=== PATIENT | male | born 1940 | race Caucasian/White ===

== ENCOUNTER 2024-05-25 06:03 | Day surgery (SDC) | payer MEDICARE, OTHER, SELFPAY ==
--- NOTE | 2024-05-18 10:37 | HP.FOC2 ---
Focused History & Physical
Chief Complaint
HPI:
FOR PROCEDURE WEDS 05/25/24
PCP: Rob Felder MD
CDY: Donn Gómez MD
Chief Complaint: MORAN/fatigue, severe
HPI: 83 y/o, PMH PAF on Eliquis, Aortic stenosis, CAD s/p CABG in 2008, s/p pacemaker for SSS, hyperlipidemia, obesity and diabetes. Presents now with worsening dyspnea on exertion, increased fatigue, sometimes associated with chest heaviness.
Echo 03/2024 with progressive severe , PG 85.5/MG 50.5, CHRISTIAN 0.44cm2. This is a significant increase from in MG from 34 over the last 6 months.
For [facility] today with TAVR evaluation.
Relevant Past Medical History: Coronary Artery Disease (CABG x2 (2008)), Diabetes, Hypertension and Other (Severe Aortic Stenosis, PFO w/atrial septal aneurysm, Atrial Flutter, SSS s/p PPM, hypothyroidism, HLD, )
Relevant Social History: Negative
Relevant Family History: Negative
Relevant Past Surgical History: Positive for (CABG x2 (ALEXIS-LAD, VG-LCx/PLB- 11/2008), DC PPM (01/2018))
Review of Systems
Review of Pertinent Systems: All Systems Negative Except for the Following Positives (progressive MORAN with increased fatigue, intermittent chest heaviness)
Medication
See Medication form for detailed medications: Yes
Medication List (including Herbals & OTC):
apixaban (Eliquis) 5 mg PO BID
cholecalciferol (vitamin D3) 50 mcg PO DAILY
docusate sodium (Colace) 200 mg PO BID PRN
empagliflozin (Jardiance) 10 mg PO DAILY
levothyroxine (Synthroid) 112 mcg PO DAILY
magnesium 250 mg PO DAILY
eluendjk-wka-RK-lycopen-lutein 0.4 mg-300 mcg- 250 mcg 1 tab PO DAILY
omega-3 fatty acids-fish oil 340-1,000 mg 1,000 mg PO DAILY
repaglinide 0.5 mg PO BID
simvastatin 40 mg PO HS
sotalol 120 mg PO BID
Medications Reviewed: Yes
Allergies and Reactions
Patient has Allergies: No
Noted Allergies and Reactions:
Allergy/AdvReac Type Severity Reaction Status Date / Time
No Known Allergies Allergy Unverified 11/14/08 11:03
Pertinent Physical Exam
All Other Systems: Negative
Head/Neck: Normal
Lungs: Normal
Heart: Other (S1 S2 3/6 holosystolic murmur across base)
Abdomen: Normal
Extremities: Other (trace bilat pedal edema)
Neurological: Normal
Diagnosis / Assessment
IMPRESSION:
Severe Aortic Stenosis
CAD, prior CABG x2 (2008)
SSS, s/p PPM implant (2017)
Atrial Flutter, on eliquis
PFO w/atrial septal aneurysm
HTN
HLD
DM
Hypothryoidism
Obesity
ECHO 04/05/24
SUMMARY
1. Left ventricular ejection fraction, by visual estimation, is 50 to 55%.
2. Preserved left ventricular systolic function.
3. Indeterminate LV diastolic function.
4. Normal left atrium by volume index (24.0 mL/m2) and normal right atrium by area (14.1 cm2).
5. Right atrial pressure of (3 mmHg), the estimated right ventricular systolic pressure is normal at (27.2 mmHg).
6. Normal right ventricular size and systolic function.
7. Severe aortic valve stenosis.
8. AoV velocity of 4.60 m/s; Peak aortic valve gradient = 84.5 mmHg; Mean gradient = 50.5 mmHg; AoV Area by continuity equation = 0.44 cm2; AoV Dimensionless Index = 0.17.
9. Mild mitral valve regurgitation is seen.
10. Compared to echo on 10/2023, aortic valve gradients have increased. Previously 62/34 mmHg.
11. Study done in Normal sinus rhythm.
Plan / Procedure
LHC today
Aspirin 324mg today
Resume eliquis post cath when stable
TAVR eval post cath
Anesthesia/Sedation to be done by Anesthesia Provider: No
[2024-05-25] VITALS (21 sets, daily range): BP systolic 124–148; BP diastolic 59–114; BMI 38.0
[2024-05-25] MEDS: NSS 340 ML IV (06:50)
[2024-05-25 07:02] LABS: Glucose - Point of Care 163 mg/dl (70-99)
[2024-05-25] MEDS: LOW STRENGTH ASPIRIN 324 MG PO (07:23)
--- NOTE | 2024-05-25 08:22 | ITS.CL.CATH ---
Light Armored Reconnaissance Officer - Catheterization
Cardiac Catheterization
Procedure Report:
LEFT HEART CATHETERIZATION
Date of Procedure: May 25, 2024
Procedures performed:
1: Coronary angiography
2: Left ventricular hemodynamic assessment
3: Saphenous vein with bypass graft and left internal mammary artery bypass graft angiography
Primary Care Physician: Dr. Rob Felder
Primary Nut Sorter Operator: Dr. Donn Gómez
INDICATION: The patient is an 83-year-old man with a past medical history significant for coronary artery disease status post CABG who is referred for increasing exertional dyspnea. Echocardiography has shown mean gradients as high as 51 mmHg on
April 05. LV systolic function is preserved at 50 to 55%. He also has a history of atrial fibrillation who is on Eliquis which was held for the procedure. Creatinine on preprocedure labs was 1.46.
ACCESS: The patient was prepped and draped in usual sterile fashion. A 6 [place] sheath was placed in the left radial artery using the Seldinger over the wire technique.
HEMODYNAMIC FINDINGS (mmHg):
LV(s/d,EDP): 0.188/16, 24
Ao(s/d,m): 140/76, 103
Mean gradient on pullback: 40 mmHg
ANGIOGRAPHIC FINDINGS:
Single-plane Left Ventriculography in LUCERO Projection: Not done
Coronary Angiography:
Dominance: Codominant
Left Main: Distal occlusion.
Left Anterior Descending: Flush occlusion. Fills via the widely patent ALEXIS graft.
Left Circumflex: Flush occlusion. Fills via the widely patent SVG.
Right Coronary: The right coronary artery is a relatively small but technically co-dominant artery that gives rise to a small caliber posterior descending artery which is widely patent.
Other angiography:
1: SVG to distal OM/left PLV: The graft is widely patent and inserts on the left-sided posterior left ventricular branch. There is retrograde filling of 2 major branches including a OM and a left-sided PDA. These vessels are widely patent. This
graft was poorly engaged from the left radial approach using a JR4 and a multipurpose diagnostic catheter.
Fluoroscopy Time (min): 7.7
Radiation Dose (mGy): 682
DAP (Gy.cm2): 50
Closure device: None. A TR band was applied for hemostasis at the left wrist.
Complications: None.
ASSESSMENT:
1: Widely patent ALEXIS and circumflex grafts to the occluded left main coronary distribution as described above.
2: Patent [place] right coronary artery.
3: Severe aortic valvular stenosis.
CONCLUSIONS and RECOMMENDATIONS:
1: Continue aggressive medical therapy for coronary artery disease.
2: Proceed with TAVR evaluation. The patient has very little social support with no local family and will need extra assistance with this process.
Luis Solano M.D.
Copy to: Dr. Rob Felder
--- NOTE | 2024-05-25 08:22 | CONSULT.STRU ---
Consultation
-
Date/Time Consultation Requested: 05/25/2024
Date/Time Consultation Performed: 05/25/2024
Requesting Provider: Luis Solano MD
Performing Provider: FRANCISCO Romeo
Reason for Consultation: /TAVR
Patient History
Physicians
Family Physician: Rob Felder MD
Outpatient Hydraulic Plumber: Mauricio Gómez MD
Primary Hydraulic Plumber: Mauricio Gómez MD
History of Present Illness
Mr. Reeves is a very pleasant 83 yom with a past medical history significant for CAD, CABG, T2DM, HTN, , Aflutter, hypercholesterolemia, and PFO. His most recent echocardiogram from 04/05/2024 is notable for EF50-55, AV P/M 85/51, DI 0.17, CHRISTIAN 0.44,
pk doug 4.6, mild MR, mild TR. From a symptomatology standpoint, patient describes MORAN progressively worse over the past six months, and positional dizziness. Discussed the pathophysiology and treatment options of aortic stenosis including SAVR and
TAVR. Explained the evaluation process comprising of lab work, staged CT scan d/t RI, CT surgical consult, dental clearance, and a heart team discussion. TAVR booklet, appointments, prescriptions, and contact information given to patient. Allowed
for answered questions at bedside.
Past Medical History
Past Medical History: Angina, CAD, HTN, Hypercholesterolemia, Hypothyroidism, NIDDM, Renal Insufficiency, Valvular Disease () and Other (Aflutter, PFO,sss)
Past Surgical History
Past Surgical History: CABG and Other (PPM)
Dental History
[facility]. Patient states he is UTD. Dental clearance form faxed
Family History
Mother: N/A
Father: N/A
Social History
Alcohol: Former
Drug: None
Tobacco: Non-Smoker
Personal:
Living: Alone
Employment: Retired
Allergies
Allergy/AdvReac Type Severity Reaction Status Date / Time
No Known Allergies Allergy Verified 05/25/24 06:32
Home Medications
�Medication �Instructions �Recorded �Confirmed �Type
simvastatin 40 mg tablet 40 mg PO HS 11/14/08 05/25/24 History
apixaban 5 mg tablet (Eliquis) 5 mg PO BID 05/25/24 05/25/24 History
cholecalciferol (vitamin D3) 50 50 mcg PO DAILY 05/25/24 05/25/24 History
mcg (2,000 unit) capsule (Vitamin
D3)
docusate sodium 100 mg capsule 100 mg PO DAILY 05/25/24 05/25/24 History
empagliflozin 10 mg tablet 10 mg PO DAILY 05/25/24 05/25/24 History
(Jardiance)
levothyroxine 112 mcg tablet 112 mcg PO DAILY 05/25/24 05/25/24 History
magnesium 250 mg tablet 250 mg PO DAILY 05/25/24 05/25/24 History
nyrechyn-wg-wbprb 300 mcg-K 60 1 tab PO DAILY 05/25/24 05/25/24 History
mcg-lycop 600 mcg-lutein 300 mcg
tablet (Centrum Silver Men)
omega-3 fatty acids 1,000 mg 1,000 mg PO DAILY 05/25/24 05/25/24 History
capsule
repaglinide 1 mg tablet 1 mg PO BID 05/25/24 05/25/24 History
sodium bicarbonate 650 mg tablet 650 mg PO BID 05/25/24 05/25/24 History
sotalol 120 mg tablet 120 mg PO BID 05/25/24 05/25/24 History
STS%
STS %: 7.29
Review of Systems
-
History Source: Patient
General: Reports Fatigue
HEENT: Reports No Symptoms
Respiratory: Reports MORAN
Cardiac: Reports No Symptoms
Abdomen/GI: Reports No Symptoms
: Reports No Symptoms
Musculoskeletal: Reports No Symptoms
Skin: Reports No Symptoms
Neurological: Reports No Symptoms
Vascular: Reports No Symptoms
Physical Exam
Vital Signs
Temp 97.6 F 05/25/24 06:20
Temp route: Oral 05/25/24 06:20
Pulse 69 05/25/24 06:20
Resp Rate 18 05/25/24 06:20
Blood pressure 124/78 05/25/24 06:20
Blood pressure extremity used: Right upper arm 05/25/24 06:20
Position: Lying 05/25/24 06:20
SaO2 99 05/25/24 06:20
Oxygen Mode of Delivery Room air 05/25/24 06:20
Can the patient verbally communicate their pain? Yes 05/25/24 06:20
Actual Weight 113.39 kg 05/25/24 06:32
Body Mass Index (BMI) 38.0 05/25/24 06:32
Labs
05/09/2024
HH: 14.3/42.9
BUN/Creatinine: 27/1.46
GFR 47
Diagnostic Studies
PACEMAKER REPORT
Implants:
Company: [employer] 8DR-T SN: [id number] Left Pectoral
RA: [employer] Solia S-45, SN: [id number], RAA
RV: [employer] Solia S-53, SN: [id number], RV apical septum
Device Testing:
Sensing: RA 6.5 (fib/flutter)mV, RV 11.1mV
Capture: RA (fib/flutter), RV 0.5V@0.4ms
Ohms: RA 487, RV 721
Final Programming:
Ethan Pacing DDD-CLS [ ]ppm
Complications: None.
Conclusions:
1. Successful implant of MRI compatible dual chamber permanent pacemaker.
ECHOCARDIOGRAM 04/05/2024
SUMMARY
1. Left ventricular ejection fraction, by visual estimation, is 50 to 55%.
2. Preserved left ventricular systolic function.
3. Indeterminate LV diastolic function.
4. Normal left atrium by volume index (24.0 mL/m2) and normal right atrium by area (14.1 cm2).
5. Right atrial pressure of (3 mmHg), the estimated right ventricular systolic pressure is normal at (27.2 mmHg).
6. Normal right ventricular size and systolic function.
7. Severe aortic valve stenosis.
8. AoV velocity of 4.60 m/s; Peak aortic valve gradient = 84.5 mmHg; Mean gradient = 50.5 mmHg; AoV Area by continuity equation = 0.44 cm2; AoV Dimensionless Index = 0.17.
9. Mild mitral valve regurgitation is seen.
10. Compared to echo on 10/2023, aortic valve gradients have increased. Previously 62/34 mmHg.
11. Study done in Normal sinus rhythm
CARDIAC CATHETERIZATION 05/25/2024
ASSESSMENT:
1: Widely patent ALEXIS and circumflex grafts to the occluded left main coronary distribution as described above.
2: Patent [place] right coronary artery.
3: Severe aortic valvular stenosis.
CONCLUSIONS and RECOMMENDATIONS:
1: Continue aggressive medical therapy for coronary artery disease.
2: Proceed with TAVR evaluation. The patient has very little social support with no local family and will need extra assistance with this process.
Procedure Type:�Isolated AVR
Perioperative Outcome Estimate %
Operative Mortality 7.29%
Morbidity & Mortality 14.9%
Stroke 2.09%
Renal Failure 3.87%
Reoperation 3.19%
Prolonged Ventilation 10.4%
Deep Sternal Wound Infection 0.192%
Long Hospital Stay (>14 days) 9.8%
Short Hospital Stay (<6 days)* 22.7%
Exam
General: No Apparent Distress, Comfortable and Other (obese)
HEENT: Normocephalic and EOMI
Neck: Trachea Midline
Respiratory: Clear
Cardiac: Murmur (IV/ TAMIKA)
GI: Soft, Non Tender and Non Distended
Rectal: Deferred by Provider
Skin: Warm and Dry
Neuro: Awake, Alert, Oriented and AO x 3
Psych: Calm
Assessment / Plan
-
Aortic stenosis
Continue with TAVR evalaution
Trend creatinine (Rx given)
Staged TAVR CT scan (Chest CT 06/08)
CT surgical consult (MPT 06/14)
Frailty testing and KCCQ12 at consult
Will discussed timing to hold Eliquis for TAVR, will initiate aspirin while Eliquis held
Will hold Jardiance for TAVR
Dental clearance
Heart team discussion
Data Reviewed
-
Media Sales Executive: Report Reviewed by me and Discussed with Physician
Echo: Report Reviewed by me and Discussed with Physician
Labs: Labs Reviewed by me
Old Records: Reviewed (Dr. Gómez's office note)
Total Time Spent with Patient (in minutes): 45
--- NOTE | 2024-05-25 08:30 | PTCARENOTE ---
Pt post cardiac catheterization. Per Dr Solano, pt did not receive sedation today so pt ok to drive himself home at 1400.
[2024-05-25] MEDS: NSS 1000 IV (08:36)
== END 2024-05-25 14:02 | disposition home or self-care (01) ==
LOC: CATH 06:03
PROVIDERS: ATTENDING PHYSICIAN Internal Medicine Interventional Cardiology; FAMILY PHYSICIAN Family Medicine; OTHER PHYSICIAN Internal Medicine Cardiovascular Disease
DX: I25.10 Atherosclerotic heart disease of native coronary artery without angina pectoris (principal); E11.9 Type 2 diabetes mellitus without complications; Z87.74 Personal history of (corrected) congenital malformations of heart and circulatory system; Z95.0 Presence of cardiac pacemaker; E78.00 Pure hypercholesterolemia, unspecified; E66.9 Obesity, unspecified; I48.0 Paroxysmal atrial fibrillation; Z79.01 Long term (current) use of anticoagulants; I49.5 Sick sinus syndrome; Z95.1 Presence of aortocoronary bypass graft; I35.0 Nonrheumatic aortic (valve) stenosis; I48.92 Unspecified atrial flutter; I10 Essential (primary) hypertension; E03.9 Hypothyroidism, unspecified; I25.3 Aneurysm of heart; Z79.899 Other long term (current) drug therapy; Z79.84 Long term (current) use of oral hypoglycemic drugs; Z79.890 Hormone replacement therapy
CPT/HCPCS: 82962; 93005; 93459; C1894; Q9967

== ENCOUNTER → 2024-06-01 09:56 | Outpatient (REF) | payer MEDICARE, OTHER, SELFPAY ==
[2024-06-01 11:08] LABS: Blood Urea Nitrogen 32 mg/dl (9-20); Calcium 9.7 mg/dl (8.4-10.2); Carbon Dioxide 24 mmol/L (22-30); Chloride 105 mmol/L (98-107); Glucose 226 mg/dl (70-99); Sodium 142 mmol/L (135-145); eGFR 53.84
== END ==
LOC: REG 09:56
PROVIDERS: ATTENDING PHYSICIAN Nurse Practitioner Acute Care; FAMILY PHYSICIAN Family Medicine
DX: I35.0 Nonrheumatic aortic (valve) stenosis (principal)
CPT/HCPCS: 36415; 80048

== ENCOUNTER → 2024-06-08 09:05 | Outpatient (REF) | payer MEDICARE, OTHER, SELFPAY | LOC: RAD 09:05 | PROVIDERS: ATTENDING PHYSICIAN Nurse Practitioner Acute Care; FAMILY PHYSICIAN Family Medicine | DX: I35.0 Nonrheumatic aortic (valve) stenosis (principal) | CPT/HCPCS: 75572; Q9967 ==

== ENCOUNTER → 2024-06-14 11:42 | Outpatient (REF) | payer MEDICARE, OTHER, SELFPAY ==
[2024-06-14 13:06] LABS: Blood Urea Nitrogen 35 mg/dl (9-20); Carbon Dioxide 26 mmol/L (22-30); Chloride 105 mmol/L (98-107); Glucose 184 mg/dl (70-99); Sodium 141 mmol/L (135-145); eGFR 53.84
== END ==
LOC: REG 11:42
PROVIDERS: ATTENDING PHYSICIAN Nurse Practitioner Acute Care; FAMILY PHYSICIAN Family Medicine
DX: I35.0 Nonrheumatic aortic (valve) stenosis (principal)
CPT/HCPCS: 36415; 80048

== ENCOUNTER → 2024-06-22 08:42 | Outpatient (REF) | payer MEDICARE, OTHER, SELFPAY | LOC: RAD 08:42 | PROVIDERS: ATTENDING PHYSICIAN Nurse Practitioner Acute Care; FAMILY PHYSICIAN Family Medicine | DX: I35.0 Nonrheumatic aortic (valve) stenosis (principal) | CPT/HCPCS: 74174; Q9967 ==

== ENCOUNTER 2024-07-21 07:17 | Inpatient (IN) | payer MEDICARE, OTHER, SELFPAY ==
--- NOTE | 2024-07-13 07:30 | HPS.HSE ---
Family Physician
-
Family Physician: Rob Felder
Chief Complaint
-
MORAN
PreTAVR evaluation
History of Present Illness
Mr. Reeves is a very pleasant 83 yom with a past medical history significant for CAD, CABG, T2DM, HTN, , Aflutter, hypercholesterolemia, and PFO. His most recent echocardiogram from 04/05/2024 is notable for EF50-55, AV P/M 85/51, DI 0.17, CHRISTIAN 0.44,
pk doug 4.6, mild MR, mild TR. From a symptomatology standpoint, patient describes MORAN progressively worse over the past six months, and positional dizziness. Discussed the pathophysiology and treatment options of aortic stenosis including SAVR and
TAVR. Patient was reviewed with the heart team in the SD[facility] and the team agreed to proceed with (R) TF TAVR utilizing a 29mm Evolut. He is scheduled for TAVR 07/21/[address] Wilkinson and Gilmer.
Reviewed medication list Jardiance last dose Monday 07/17, Eliquis Last dose 07/18, Aspirin 325 mg 07/19, Aspirin 81 mg 07/20,07/21, continue Synthroid including 07/21. He will resume Eliquis and d/c aspirin post TAVR. Mr. Reeves will arrive to the
[facility] at 0530. Reviewed the risks of the procedure as discussed in CT consult including vascular injury and stroke. Informed patient that he will get a phone call from the heart team on Thursday before the procedure to confirm date and
location of arrival. Allowed for and answered questions.
Medical History
Past Medical History
Past Medical History: Reports Arrhythmia (Aflutter), CAD, HTN, Hypercholesterolemia, Hypothyroidism, NIDDM and Valvular Disease (aortic stenosis)
Additional Past Medical History:
CKD, Atrial septal defect
Past Surgical History: Reports Cardiac (CABG x 2 (2008)) and Other (PPM)
Social History
Tobacco: Non-smoker
Alcohol: Former
Drug: None
Personal:
Living: Alone
Family History
Family History: Not pertinent
Allergies / Home Medications
Allergies reflects when Allergies were last updated in [employer].
NKDA
Home Medications with original date entered in [employer]
Centrum Silver(Multiple Vitamins-Minerals) - Tablet Chewable as directed Orally.Docusate Sodium 100 MG Capsule 1 capsule as needed Orally Once a day.
Eliquis(Apixaban) 5 MG Tablet as directed Orally.
Jardiance(Empagliflozin) 10 MG Tablet 1 tablet Orally Once a day.
Levothyroxine Sodium 112 MCG Capsule 1 capsule in the morning on an empty stomach Orally Once a day.
Magnesium 250 MG Tablet 1 tablet with a meal Orally Once a day.
[place] 3 1000 MG Capsule 1 capsule Orally Three times a day.
Repaglinide 1 MG Tablet 1 tablet 15 to 30 minutes before meals Orally Twice a day.
Simvastatin 40 MG Tablet 1 tablet in the evening Orally Once a day.
Sodium Bicarbonate 650 MG Tablet as directed Orally 2 times a day.
Sotalol HCl 120 MG Tablet 1 tablet Orally every 12 hrs.
Vitamin D3 50 MCG (2000 UT) Capsule 1 capsule Orally Once a day.
Allergy/Medication List:
NKDA
Review of Systems
-
History Source: Patient
A 12 point ROS was completed and negative except as noted: Yes
Respiratory: Reports Other (MORAN)
Physical Exam
Physical Exam
General: Well Developed, Well Nourished, No Apparent Distress and Comfortable
HEENT: PERRLA
Respiratory: Clear
Cardiac: Murmur (II/ TAMIKA)
Breast: Deferred by me
GI: Soft, Non Tender and Non Distended
Rectal: Deferred by Provider
Genito-urinary: Deferred by me
Musculoskeletal: No Edema
Skin: Warm and Dry
Neuro: Awake, Alert and Oriented
Psych: Calm
Data Reviewed
-
CT Scan: Report Reviewed by me and Discussed with Physician (Reviewed with the heart team)
Medical Tests (Nuc Med, Echo, EKG etc): Report Reviewed by me and Discussed with Physician (echo and cath reviewed with the heart team)
Lab Data: Labs Reviewed by me
Old Records: Reviewed
Impression/Plan
-
IMPRESSION/PLAN:
Aortic stenosis
TF TAVR planned utilizing a 29 mm Evolut FX+ with Drs. Scherer and Jaja
Eliquis held for 48 hours, initiate aspirin while Eliqus held. Resume Eliquis and d/c aspirin post TAVR
POD #04/07 echo
Cardiac rehab consult
Lab Results
-
Lab Results
WBC 6.2 10^3/uL (4.8-10.8) 07/13/24 12:53
RBC 3.99 10^6/uL (4.70-6.10) L 07/13/24 12:53
Hgb 13.4 g/dL (13.0-18.0) 07/13/24 12:53
Hct 39.3 % (39.0-52.0) 07/13/24 12:53
MCV 98.5 fL (80.0-94.0) H 07/13/24 12:53
MCH 33.6 pg (27.0-31.0) H 07/13/24 12:53
MCHC 34.1 g/dL (33.0-37.0) 07/13/24 12:53
RDW 12.5 % (11.5-14.5) 07/13/24 12:53
Plt Count 151 10^3/uL (130-400) 07/13/24 12:53
MPV 10.3 fL (7.4-10.4) 07/13/24 12:53
Abs Immat Gran (auto) 0.0 10^3/uL (0-0.05) 07/13/24 12:53
Absolute Neuts (auto) 4.0 10^3/uL (1.4-6.5) 07/13/24 12:53
Absolute Lymphs (auto) 1.3 10^3/uL (1.2-3.4) 07/13/24 12:53
Absolute Monos (auto) 0.6 10^3/uL (0.1-0.6) 07/13/24 12:53
Absolute Eos (auto) 0.3 10^3/uL (0-0.7) 07/13/24 12:53
Absolute Basos (auto) 0.0 10^3/uL (0-0.2) 07/13/24 12:53
Immature Gran % 0.3 % (0-0.5) 07/13/24 12:53
Neutrophils % 64.6 % (42.2-75.2) 07/13/24 12:53
Lymphocytes % 21.0 % (20.5-51.1) 07/13/24 12:53
Monocytes % 9.1 % (1.7-9.3) 07/13/24 12:53
Eosinophils % 4.5 % (0-6) 07/13/24 12:53
Basophils % 0.5 % (0-2) 07/13/24 12:53
Nucleated RBC % 0 % (-) 07/13/24 12:53
PT 15.4 Sec (11.4-14.6) H 07/13/24 12:53
INR 1.17 07/13/24 12:53
APTT 34.8 Sec (23.4-35.0) 07/13/24 12:53
Sodium 140 mmol/L (135-145) 07/13/24 12:53
Potassium 4.7 mmol/L (3.5-5.1) 07/13/24 12:53
Chloride 104 mmol/L (98-107) 07/13/24 12:53
Carbon Dioxide 25 mmol/L (22-30) 07/13/24 12:53
BUN 31 mg/dl (9-20) H 07/13/24 12:53
Creatinine 1.2 mg/dL (0.7-1.3) 07/13/24 12:53
Estimated Creat Clear 54 ml/min 07/13/24 12:53
eGFR 59.26 07/13/24 12:53
Glucose 172 mg/dl (70-99) H 07/13/24 12:53
Calcium 9.7 mg/dl (8.4-10.2) 07/13/24 12:53
Total Bilirubin 0.8 mg/dl (0.2-1.3) 07/13/24 12:53
Direct Bilirubin 0.3 mg/dl (0.0-0.4) 07/13/24 12:53
AST 29 U/L (17-59) 07/13/24 12:53
ALT 30 U/L (0-50) 07/13/24 12:53
Alkaline Phosphatase 34 U/L (38-126) L 07/13/24 12:53
Bkt-Q-Ejkoexwhjfq Pept 369 pg/ml 07/13/24 12:53
Total Protein 7.2 g/dl (6.3-8.2) 07/13/24 12:53
Albumin 4.6 g/dl (3.5-5.0) 07/13/24 12:53
Urine Color Yellow 07/13/24 13:10
Urine Clarity Clear (Clear) 07/13/24 13:10
Urine pH 6.0 (5.0-9.0) 07/13/24 13:10
Ur Specific [place] 1.015 (<1.030) 07/13/24 13:10
Urine Ketones Negative (Negative) 07/13/24 13:10
Ur Occult Blood Reflex Negative (Negative) 07/13/24 13:10
Urine Nitrite (Reflex) Negative (Negative) 07/13/24 13:10
Urine Bilirubin Negative (Negative) 07/13/24 13:10
Urine Urobilinogen Negative (Neg - 1+) 07/13/24 13:10
Leukocyte Esterase Rfl Negative (Negative) 07/13/24 13:10
Urine RBC 0-2 /HPF (0-2) 07/13/24 13:10
Urine WBC (Reflex) 0-2 /HPF (0-5) 07/13/24 13:10
Ur Squamous Epith Cells 0-2 /LPF (Few) 07/13/24 13:10
Urine Glucose 4+ (Negative) A 07/13/24 13:10
Urine Albumin (Reflex) 1+ (Neg - Trace) A 07/13/24 13:10
Blood Type AB POS 07/13/24 12:53
Antibody Screen Negative (Negative) 07/13/24 12:53
[2024-07-13 12:35] VITALS: BMI 39.4
[2024-07-13 13:46] LABS: % Basophils 0.5 % (0-2); % Eosinophils 4.5 % (0-6); % Immature Granulocytes 0.3 % (0-0.5); % Monocytes 9.1 % (1.7-9.3); % Neutrophils 64.6 % (42.2-75.2); Absolute Eosinophils 0.3 10^3/uL (0-0.7); Absolute Lymphocytes 1.3 10^3/uL (1.2-3.4); Absolute Monocytes 0.6 10^3/uL (0.1-0.6); Hematocrit 39.3 % (39.0-52.0); Hemoglobin 13.4 g/dL (13.0-18.0); Mean Corp Hgb Conc. 34.1 g/dL (33.0-37.0); Mean Corpuscular Hgb 33.6 pg (27.0-31.0); Mean Corpuscular Volume 98.5 fL (80.0-94.0); Mean Platelet Volume 10.3 fL (7.4-10.4); Nucleated Red Blood Cells % 0 % (-); Platelet Count 151 10^3/uL (130-400); Red Blood Cell Count 3.99 10^6/uL (4.70-6.10); Red Cell Dist. Width 12.5 % (11.5-14.5); White Blood Cell Count 6.2 10^3/uL (4.8-10.8)
[2024-07-13 13:58] LABS: INR 1.17; PT 15.4 Sec (11.4-14.6)
[2024-07-13 14:00] LABS: APTT 34.8 Sec (23.4-35.0)
[2024-07-13 14:07] LABS: NT-proBNP 369 pg/ml
[2024-07-13 14:22] LABS: Urine Albumin 1+ (Neg - Trace); Urine Bilirubin Negative (Negative); Urine Character Clear (Clear); Urine Color Yellow; Urine Glucose 4+ (Negative); Urine Ketone Negative (Negative); Urine Leukocyte Negative (Negative); Urine Nitrite Negative (Negative); Urine Occult Blood Negative (Negative); Urine Specific Gravity 1.015 (<1.030); Urine Urobilinogen Negative (Neg - 1+)
[2024-07-13 14:38] LABS: Urine Red Blood Cell 0-2 /HPF (0-2); Urine Squamous Cell 0-2 /LPF (Few); Urine White Cell 0-2 /HPF (0-5)
--- NOTE | 2024-07-13 14:41 | CM ---
CM following for DC planning needs.
Met w/ patient during PATs for planned TAVR, 07/21.
Pt. resides alone in a private split level home with 6 steps between levels.
Pt. is functionally indep. w/ ADLs, mobility without the use of any assisted device. Pt. still drives. He prepares his own meals but goes out to dinner regularly. He only has a cousin, who lives locally and can assist as needed.
We reviewed pre and post op routines.
Soap, shower instructions and TAVR booklet provided.
Reviewed post op restrictions to include lifting and driving restrictions.
We discussed post op MD appointments, visit from CT Transitional Care RN.
Plan for TAVR, 07/21.
Antic. DC plan is for home w/ CT Transitional Care RN.
CM to follow.
[2024-07-13 14:44] LABS: Blood Urea Nitrogen 31 mg/dl (9-20); Glucose 172 mg/dl (70-99)
[2024-07-13 14:45] LABS: ALT (SGPT) 30 U/L (0-50); AST (SGOT) 29 U/L (17-59); Albumin 4.6 g/dl (3.5-5.0); Alkaline Phosphatase 34 U/L (38-126); Calcium 9.7 mg/dl (8.4-10.2); Carbon Dioxide 25 mmol/L (22-30); Chloride 104 mmol/L (98-107); Estimated Creatinine Clearance 54 ml/min; Potassium 4.7 mmol/L (3.5-5.1); Sodium 140 mmol/L (135-145); Total Protein 7.2 g/dl (6.3-8.2); eGFR 59.26
[2024-07-13 15:09] LABS: Direct Bilirubin 0.3 mg/dl (0.0-0.4); Total Bilirubin 0.8 mg/dl (0.2-1.3)
[2024-07-14 10:52] LABS: Glycohemoglobin (HgbA1c) 7.9 % (4.0-5.6)
[2024-07-21] VITALS (12 sets, daily range): BP systolic 94–139; BP diastolic 53–82; BMI 37.9
[2024-07-21 08:01] LABS: Glucose - Point of Care 178 mg/dl (70-99)
--- NOTE | 2024-07-21 08:36 | CM ---
Addendum entered by Gale Mendez 07/22/24 08:07:
Mr. Reeves was admitted to room 2253.
Original Note:
Reviewed chart. Mr. Morgan is in the operating room today. Prior to admission she resides alone in a spilt level home. She has six steps to to each level. Prior to admission he was independent with ambulation and adls. He does not have any DME in
the home. He has a prescription plan and uses [facility]. Medical work-up in progress. The discharge plan is to return home with a home visit by the Transitional Care Nurse when medically stable.
[2024-07-21] MEDS: ANCEF 10 IV (09:53)
--- NOTE | 2024-07-21 11:44 | W.CVOR.SURPR ---
CVOR Surgeon Immed Pre Op
-
I have examined this patient prior to performance of the scheduled procedure.
The patient's condition is unchanged from the time of the dictated/written History and
Physical and the patient is able to undergo the scheduled procedure.
--- NOTE | 2024-07-21 11:45 | W.IMMPOSTOP ---
Surgical Immed Post Op Note
-
[id number]
STRUCTURAL HEART PROCEDURE NOTE:
Preoperative Dx:
Severe aortic stenosis (P/M: 84.5/50.5, Hydrogenation Operator 4.60, DI 0.17)
CAD s/p prior CABG x 2 (2008)
PPM - Hx of a-flutter
ASD
HLD/HTN
DM II
CKD
Hypothyroidism
Postoperative Dx:
Same
Ysdnw-bd-sraqmaj combined systolic/diastolic CHF w/ elevated LVEDP (27mmHg)
Procedures:
1) L THREE DIMENSIONAL ART INSTRUCTOR access w/ tactile, U/S, and fluoroscopic guidance, micropuncture technique, limited angiography, long 6Fr sheath placement
2) L CFV access w/ U/S and fluoroscopic guidance, micropuncture technique, long 6Fr sheath placement
3) R THREE DIMENSIONAL ART INSTRUCTOR access w/ tactile, U/S, and fluoroscopic guidance, micropuncture technique, limited angiography, 8Fr dilator placement
4) Perclose placement x 2 into R THREE DIMENSIONAL ART INSTRUCTOR, 8Fr sheath placement
5) Placement of temporary RV pacing wire w/ threshold testing
6) Placement of pigtail catheter into NCC w/ limited aortography & confirmation of cusp overlap views
7) Placement of 14Fr COOK sheath into R THREE DIMENSIONAL ART INSTRUCTOR (systemic heparinization)
8) Wire purchase across stenotic AV (AL-1, soft-tip straight, table J-wire, pigtail catheter, LVEDP assessment)
9) Fluoroscopic inspection of TAVR valve
10) Removal of COOK sheath w/ placement of TAVR valve w/ in-line sheath via R THREE DIMENSIONAL ART INSTRUCTOR access
11) R TF TAVR w/ placement of 29mm Evolut FX+ (1 partial recapture/reposition)
12) Completion aortography
13) Completion TTE (mean gradient 3mmHg, pwqf-ad-agmyemet PVL)
14) Removal of valve delivery system w/ replacement of COOK sheath
15) Post-TAVR BAV w/ 23mm TRUE balloon w/ good visual expansion of valve inflow
16) Completion TTE (mean gradient 3mmHg, trace PVL)
17) Removal of COOK sheath w/ R THREE DIMENSIONAL ART INSTRUCTOR mgmt w/ perclose sutures x 2; manual pressure
18) Completion R ileofemoral angiography
19) Removal of temporary pacing wire
20) Removal of L THREE DIMENSIONAL ART INSTRUCTOR 6Fr sheath w/ mgmt w/ 6Fr angioseal; manual pressure
21) Removal of L CFV 6Fr sheath w/ mgmt w/ manual pressure
Casing Running Machine Tender:
Dr. Candie Wilkinson
Cardiac Surgeon:
Dr. Last Scherer
Anesthesia:
MAC w/ local to B/L groins
Cath Data:
Start: 1034hrs, Deploy: 1115hrs, End: 1142hrs
FT: 17.1min, mGy: 810, DAP: 91.3, Contrast: 110mL
Post-TTE: mean gradient 3mmHg, trace PVL
LVEDP: 27mmHg
Implants:
Medtronic Evolut Fx+ 29mm; [id number]
Perclose x 2 to R THREE DIMENSIONAL ART INSTRUCTOR
6Fr angioseal x 1 to L THREE DIMENSIONAL ART INSTRUCTOR
Complications:
None
Condition:
Stable/guarded to recovery
[2024-07-21 12:08] LABS: ACT-LR - POC > 397 Seconds (116-155)
[2024-07-21 12:08] LABS: ACT-LR - POC > 397 Seconds (116-155)
--- NOTE | 2024-07-21 13:34 | ITS.CL.TAVR ---
Tutoring Manager - TAVR Report
TAVR PRocedure
Procedure Report:
TRANSCATHETER AORTIC VALVE REPLACEMENT
Date of Procedure: July 21, 2024
Referring: Drs. Mauricio Gómez and Elvis Solano
Operators: Drs. Candie Wilkinson and Last Scherer
PROCEDURE PERFORMED:
1. Successful placement of 29 mm Medtronic Evolut FX+ valve via right femoral artery.
ACCESS:
1. Right common femoral artery, 8 Salvadorean sheath, under ultrasound guidance using a micropuncture kit.
2. Left common femoral vein, 6 Salvadorean sheath, under ultrasound guidance using a micropuncture kit.
3. Left common femoral artery, 6 Salvadorean sheath, under ultrasound guidance using a micropuncture kit.
Ultrasound was utilized for vascular access. The right and left femoral artery and vein were visualized under ultrasound, and the vessels was patent and arteries were pulsatile. An image was stored permanently in the patient's medical record.
Under direct ultrasound guidance, a 6 Salvadorean sheaths was inserted into the left common femoral artery and vein, and an 8 Salvadorean sheath in theright common femoral artery, respectively, using a micropuncture kit through a modified Seldinger technique.
PREPROCEDURE NYHA CLASS: II
DESCRIPTION OF PROCEDURE: The patient was referred for assessment of severe symptomatic aortic stenosis and following a comprehensive evaluation it was felt that transcatheter aortic valve replacement (TAVR) would be the most appropriate treatment.
Informed consent was obtained prior to the procedure. A 'time-out' was called and the procedural plan was verbally confirmed by anesthesia, surgery, perfusion, and company laborer staff.
Arterial and venous access were obtained in the left common femoral artery and vein using a micropuncture technique and 6 Fr. sheaths were inserted. A 5 Fr. transvenous pacing wire was then advanced to the right ventricle where excellent pacing
thresholds were obtained.
A 5 Fr. pigtail catheter was then advanced to the proximal ascending aorta / noncoronary cusp where angiography was performed to define the the cusp overlap view isolating the non-coronary cusp with overlap of the right and left coronary cusps. The
cusp overlap view was LUXEMBOURGISH 3/ CAU 10.
Ultrasound guidance was then used to obtain arterial access in the right common femoral artery and an 8Fr. sheath was inserted. Angiography was performed and the arteriotomy site appeared appropriate for preclosure with two Perclose devices. An 8
Salvadorean sheath was then inserted back into the common femoral artery over a J-tipped guidewire. An AL1 catheter was then advanced to the proximal descending aorta. A Double-curve Lunderquist 0.035' wire was placed in the proximal descending
thoracic aorta to facilitate delivery of a 14 Fr / 13 cm Cook sheath.
An AL1 catheter was then positioned just above the aortic valve and a 0.035' Straight tip wire probed the aortic valve and crossed the stenotic leaflets. The AL1 was then advanced to the mid left ventricle. A long J-wire was advanced to the left
ventricular apex and was followed to the apex with an angled pig-tail catheter. The Double Curve Lunderquist was then positioned in the left ventricular apex. The Evolut FX+ stent was inspected under fluoroscopy/cine while rotating the stent
delivery system. The stent paddles were within the pocket and no significant crown overlap noted.
The 14 Fr. sheath was exchanged for the Evolut InLine delivery system. The 29 mm Evolut FX+ stent was advanced across the stenotic leaflets. The Evolut FX+ valve was slowly deployed in the leaflet overlap view until the stent flared achieving
contact at 4-5 below the noncoronary cusp. The stent continued to flared achieving contact with the left coronary cusp. The image intensifier was rotated to an LUXEMBOURGISH position to remove parallax from the valve with continued valve deployment with
controlled pacing. We transitioned quickly through the rumble strips on the InLine delivery sheath until the marker band was positioned just below the paddle attachment. Angiography was performed. The valve structure was released from the
delivery system when we were happy with the valve position. Post deployment angiography had mild to moderate aortic insufficiency and a mean gradient of 4 mmHg. Decision was made to proceed with postdilatation using a 23 mm true balloon which was
performed under rapid pacing at 180 bpm which the patient tolerated well. Repeat echocardiogram at this point showed trace aortic regurgitation with a mean gradient across the aortic valve of 3 mmHg.
The Evolut FX+ delivery system capsule was reunited to the body of the delivery system. The Evolut InLine sheath was removed and the Perclose knots were advanced to the arteriotomy site resulting in excellent hemostasis.
Fluoro Time (min): 17.1, Dose (mGy): 810, DAP (Gy.cm2) : 91.3
CONCLUSIONS:
1. Severe symptomatic aortic stenosis. Successful deployment of a 29 mm Evolut FX+ valve with minimal aortic insufficiency post procedure
2. Successful arteriotomy closure with 2 Perclose devices.
Copy to: Mauricio Gómez and Elvis Solano
Candie Wilkinson MD, FAC, [facility]
[2024-07-21 15:12] LABS: Glucose - Point of Care 131 mg/dl (70-99)
--- NOTE | 2024-07-21 16:30 | W.DCSUMMARY ---
Discharge Summary
Discharge Data
Date of Admission: 07/21/24
Date of Discharge: 07/22/24
-
Pending Results: No
Hospital Course
Primary care physician: Dr. Rob Felder
Outpatient nitrator operator: Dr. Mauricio Gómez
Inpatient consultants: [facility]
Procedures:
1. Transcatheter Aortic Valve Replacement with 29 mm Medtronic Evolut FX +
Primary Diagnosis:
1. Aortic Stenosis
Secondary Diagnoses:
1. CHF
2. A-flutter
3. CAD s/p CAB x 2 (2008)
4. HTN
5. Hypercholesterolemia
6. Hypothyroidism
7. NIDDM
8. CKD 3a
9. ASD with PFO
10. SSS s/p PPM
HPI: 83-year-old male who underwent extensive outpatient consultation for severe aortic stenosis who was recommended for TAVR
Hospital course:
Patient was electively admitted on 07/21/24 for a R TF transcatheter aortic valve replacement with 29 mm Medtronic Evolut FX + with Dr. Candie Wilkinson and Dr. Last Scherer. There were no intra-op events and patient went to labor utilization superintendent recovery. B/L
groins remained stable. Post-operative EKG showed 100% A-V pacing with intrinsic PPM. He was sent to IVU for the remainder of his recovery. Post-operative LVEDP was 27. On 07/22/24, POD #1, B/L groins remained stable. Patient was diuresed with Lasix
20 mg PO followed by Lasix 20 mg IV. Repeat TTE showed a peak/mean gradient of and mild paravalvular leak. Patient was tolerating ambulating within the hallway without issue. Home medications were resumed with the addition of Lasix 40 mg PO
daily. He was deemed stable for discharge with plan to repeat BMP in 1-week to assess renal and electrolytes as per Engrosser. Plan for follow-up care with Transitional Care Nursing.
Home medication changes:
- Addition of Lasix 40 mg PO daily
Discharge Plan
-
Patient Disposition: Home (Routine Discharge)
Discharge Diagnosis/Procedures: TF TAVR 07/21/24
Condition: Good
Diet: Low Fat, Low Cholesterol and 2 Gram Sodium
Activity: As tolerated
Driving Restrictions: No driving for 1 week
Bathing Restrictions: OK to Shower
Blood Work: Check BMP in 1 week
Others Tests: Your 30 day follow up echocardiogram: 09/05/2024 @ 11:00 at [facility]
You will lifelong preprocedural/predental antibiotic prophylaxis for any future dental procedures.
Other Services: Cardiac Rehab
Wound Care: Please do not apply lotions, creams or powders to groin areas. Monitor for increased pain, redness, swelling or drainage. Notify your doctor if any occur.
Specialty Instructions: Weigh Daily- Call MD for wt gain/loss 3 lbs overnight/5 lbs in 1 week
Activity Restrictions/Additional Instructions:
Please call [facility] Cardiac Rehab Phase 2 program to schedule your first visit at [phone]
Referrals:
CT Transitional Care Nurse [Outside] - in one to two days
(
The Cardiothoracic Transitional Care Nurse will call you to set up a visit in 1-2 days.)
Mauricio óGmez MD [Active] - 08/08/24 9:30 am
Rob Felder MD [Family Provider] - in four to six weeks (Please make an appointment in four to six weeks. )
Prescriptions:
New
acetaminophen 325 mg Tablet
650 mg PO Q4HPRN PRN (Reason: COLES, mild pain, or fever >101F) Qty: 0 0RF
furosemide [Lasix] 40 mg tablet
40 mg PO DAILY Qty: 30 0RF
Continued
simvastatin 40 MG tablet
40 mg PO HS
docusate sodium 100 mg Capsule
100 mg PO DAILY
levothyroxine 112 mcg Tablet
112 mcg PO DAILY
Eliquis 5 mg Tablet
5 mg PO BID
omega-3 fatty acids 1,000 mg Capsule
1,000 mg PO DAILY
magnesium 250 mg Tablet
250 mg PO DAILY
Centrum Silver Men [phone] mcg Tablet
1 tab PO DAILY
sotalol 120 mg Tablet
120 mg PO BID
sodium bicarbonate 650 mg Tablet
650 mg PO BID
cholecalciferol (vitamin D3) [Vitamin D3] 25 mcg (1,000 unit) Tablet
25 mcg PO DAILY
repaglinide 2 mg Tablet
2 mg PO BID
Jardiance 25 mg Tablet
25 mg PO DAILY
aspirin 81 mg Tablet
81 mg PO DAILY
Discharge Orders:
Discharge Patient (As Directed); Ordered 07/22/24
Ordered By: Ronda Gutierrez
Care Plan Goals
Care Plan Goals:
Problem: Readiness for enhanced knowledge related to diagnosis and treatment plan
Goal: Understand your diagnosis and treatment plan needs, including medications if applicable.
Instructions: Know your diagnosis, underlying causes and treatment plan options, including medications if applicable. Consult with your health care team to learn about your diagnosis and treatment plan, including medications if applicable.
Discharge Date and Time
Print Language: SRI LANKAN
[2024-07-21 16:57] LABS: Glucose - Point of Care 119 mg/dl (70-99)
[2024-07-21] MEDS: SODIUM BICARBONATE PO (16:59)
[2024-07-21] MEDS: ANCEF IV (17:00)
[2024-07-21] MEDS: NOVOLOG FLEXPEN-LOW RESISTANCE SC ×2 (17:01)
[2024-07-21] MEDS: ANCEF 5 IV (17:04)
[2024-07-21] MEDS: PRANDIN 2 MG PO (17:04)
--- NOTE | 2024-07-21 17:14 | PTCARENOTE ---
Pt received at 1645 post TAVR. Pt ambulated off the stretcher to the BR and urinated. Pt currently oob in the chair eating dinner. Denies any pain or sob. Bilateral groin sites unchanged. Small area of bloody drainage noted on right groin dressing
that was from several hours ago.
[2024-07-21] MEDS: SODIUM BICARBONATE 650 MG PO (20:09)
[2024-07-21] MEDS: BETAPACE 120 MG PO (20:09)
[2024-07-21 22:49] LABS: Glucose - Point of Care 116 mg/dl (70-99)
[2024-07-21] MEDS: LIPITOR 20 MG PO (22:50)
--- NOTE | 2024-07-21 23:04 | PTCARENOTE ---
Received patient at change of shift. AV paced on the monitor, HR in the 70s. L groin dressing CDI, soft. R groin dressing with some drainage, dressing changed with CT surgery PA. No complaints from pt at this time, see MAY.
[2024-07-22] VITALS (8 sets, daily range): BP systolic 98–131; BP diastolic 50–85; PULSE 80; O2SAT 96–97; BMI 37.6
[2024-07-22 03:38] LABS: Hematocrit 38.3 % (39.0-52.0); Hemoglobin 13.2 g/dL (13.0-18.0); Mean Corp Hgb Conc. 34.5 g/dL (33.0-37.0); Mean Corpuscular Volume 98.7 fL (80.0-94.0); Mean Platelet Volume 10.2 fL (7.4-10.4); Platelet Count 121 10^3/uL (130-400); Red Blood Cell Count 3.88 10^6/uL (4.70-6.10); Red Cell Dist. Width 12.6 % (11.5-14.5); White Blood Cell Count 7.6 10^3/uL (4.8-10.8)
[2024-07-22 04:04] LABS: Blood Urea Nitrogen 24 mg/dl (9-20); Calcium 9.6 mg/dl (8.4-10.2); Carbon Dioxide 24 mmol/L (22-30); Chloride 108 mmol/L (98-107); Estimated Creatinine Clearance 60 ml/min; Glucose 125 mg/dl (70-99); Potassium 4.5 mmol/L (3.5-5.1); Sodium 140 mmol/L (135-145); eGFR > 60.00
--- NOTE | 2024-07-22 05:49 | W.PN.CT ---
Today's Communication / Plan
-
-pod #1
-no issues overnight
-LVEDP 27. Denies any SOB, no complaints. Will give 20 po Lasix this am
-AV-paced
-Echo today
-current meds (Eliquis, Sotalol, Lipitor, Farxiga, Prandin)
-encourage IS, OOB, ambulate
-possible d/c
Assessment / Plan
-
- Severe symptomatic - s/p R TF TAVR w/ placement of 29mm Evolut FX+ (1 partial recapture/reposition) with Post-TAVR BAV w/ 23mm TRUE balloon w/ good visual expansion of valve inflow on 07/21/24, pod #1
- Post-TTE: mean gradient 3mmHg, trace PVL
- Ynecj-qt-qnskcgu combined systolic/diastolic CHF w/ elevated LVEDP (27mmHg)
- CAD s/p prior CABG x 2 (2008)
- s/p PPM for SSS
- Paroxysmal a-fib - on Eliquis
- ASD
- HLD/HTN
- DM II
- CKD
- Hypothyroidism
- Class 2 obesity (BMI 37)
Discussed patient care with: Nursing and Care Team
Subjective
-
Date of Service: July 22, 2024
Objective Data
-
PT 15.4 Sec (11.4-14.6) H 07/13/24 12:53
INR 1.17 07/13/24 12:53
APTT 34.8 Sec (23.4-35.0) 07/13/24 12:53
Vital Signs
Vital Signs
Temp Pulse Resp BP Pulse Ox
98 F 71 16 132/81 97
07/21/24 22:45 07/21/24 22:45 07/21/24 22:45 07/21/24 20:09 07/21/24 22:45
SaO2: 97
Physical Exam
-
General: Awake and AOx3
Cardiovascular: Regular rate & rhythm, No Murmurs and No Rub
Respiratory: Clear
Incision: Other (groins are cdi, soft, nontnender, no hematoma b/l)
Extremities: No Edema (2+ DPs b/l)
Abdomen; soft, nontender, nondistended, + bowel sounds
Data Reviewed
-
Lab Results: Results Reviewed
Medications: Active Meds Reviewed
Chest X-Ray: Report Reviewed and Image Reviewed
ECG: Report Reviewed and Image Reviewed
[2024-07-22] MEDS: SYNTHROID 112 MCG PO (06:06)
[2024-07-22 06:43] LABS: Glucose - Point of Care 193 mg/dl (70-99)
[2024-07-22] MEDS: LASIX 20 MG PO (06:44)
--- NOTE | 2024-07-22 07:28 | W.PN.CARDCBS ---
Addendum entered and electronically signed by Candie Wilkinson MD 07/22/24 14:51:
I saw and examined the patient.
The Network Engineer Administrator's note was reviewed and I agree with the note.
Comment: Overall patient is doing well and does not offer any significant complaints. He has been ambulating within his room without significant shortness of breath.
Vital signs and lab work reviewed. Blood counts are stable. On exam patient is out of bed into a chair, no acute distress, at times when he speaks he gets a little tachypneic. Mild JVD, normal carotid upstrokes, no carotid bruit, L mildly
decreased breath sounds at bilateral bases but otherwise clear, regular rate, normal S1 and S2, no murmurs, rubs or gallops, abdomen is obese but otherwise soft, nontender, nondistended with active bowel sounds, bilateral groin sites are soft with
dressing in place which is clean, dry and intact, no hematoma or bruit, warm extremities without significant edema.
Echocardiogram reviewed showing preserved LV systolic function with trace to mild PVL with otherwise stable appearing valve and stable post TAVR gradients. No pericardial effusion.
Recommendations:
1. Patient is status post 29 mm Medtronic Evolut fracture plus TAVR on July 21, 2024 via right common femoral artery approach, doing well with no acute complications.
2. LVEDP significantly elevated at 27 mmHg. He received 2 doses yesterday and this morning of 20 mg IV Lasix each. Plan to discharge him on 40 mg of p.o. Lasix daily to maintain euvolemia with plan to recheck renal function and electrolytes next
week.
3. Echocardiogram reviewed showing preserved LV systolic function with trace to mild PVL. In some off axis views, questionable color flow is seen across the septum so we will have computer technologist obtain there are some concern about , additional views to
rule out any concern for VSD, though my suspicion for this is very low. I think it is likely flow from the mild PVL being seen and off axis view.
4. Outpatient cardiology follow-up will be set up with Dr. Donn Gómez upon discharge.
5. Repeat echocardiogram at 1 month narinder.
Unless echocardiogram shows any other concerns, stable for discharge.
Candie Wilkinson MD, [facility], [facility]
Original Note:
Today's Communication / Plan
-
Appears well
Repeat echo today
If stable, ok for discharge
Impression / Plan
-
PCP: Dr. Felder
Transit Specialist: Dr. Gómez
Impression:
Severe
s/p 29 mm Evolut FX+ TAVR 07/21/2024
CAD
s/p CABG x2 2008
SSS s/p PPM
Paroxysmal atrial fibrillation
Chronic Eliquis AC
HTN
HLD
DM2
CKD
Hypothyroidism
ASD
Echo 07/22/2024: Study pending
Plan:
-Known symptomatic severe . Now s/p TAVR 07/21/2024. POD #1
-Doing well overnight. No complaints.
-Minimal AI noted on immediate post-op echo. Await repeat echo today.
-Eliquis restarted this AM. Hgb stable at 13.2
-s/p single dose of PO lasix 20mg this AM. Creat 1.1. Weight stable.
-BP and HR stable this AM.
-No arrhythmias noted on telemetry. Continue sotalol 120mg BID.
-If echo stable, ok for discharge
-Follow up arranged with primary document control clerk.
Progress Note - Transit Specialist
Subjective
Date of Service: July 22, 2024
No complaints.
Objective
Labs:
07/22/24 03:16
07/22/24 03:16
Labs
Hgb 13.2 g/dL (13.0-18.0) 07/22/24 03:16
Hct 38.3 % (39.0-52.0) L 07/22/24 03:16
Plt Count 121 10^3/uL (130-400) L 07/22/24 03:16
PT 15.4 Sec (11.4-14.6) H 07/13/24 12:53
INR 1.17 07/13/24 12:53
APTT 34.8 Sec (23.4-35.0) 07/13/24 12:53
Sodium 140 mmol/L (135-145) 07/22/24 03:16
Potassium 4.5 mmol/L (3.5-5.1) 07/22/24 03:16
BUN 24 mg/dl (9-20) H 07/22/24 03:16
Creatinine 1.1 mg/dL (0.7-1.3) 07/22/24 03:16
Glucose 125 mg/dl (70-99) H 07/22/24 03:16
Vital Signs and I&O:
Vital Signs
Temp Pulse Resp BP Pulse Ox
98.1 F 65 18 131/61 97
07/22/24 07:20 07/22/24 06:44 07/22/24 07:20 07/22/24 06:44 07/22/24 07:20
Vital Signs
Temp Pulse Resp BP Pulse Ox
98.1 F 65 18 131/61 97
07/22/24 07:20 07/22/24 06:44 07/22/24 07:20 07/22/24 06:44 07/22/24 07:20
Physical Exam
Physical Exam
GEN: No distress, awake, alert, oriented x3
HEENT: supple, anicteric, mmm
LUNGS: CTA b/l, no wheezes/rales
CV: Reg, S1/S2, no murmur
EXT: No clubbing, cyanosis, or edema
NEURO: Gross non-focal
SKIN: Warm, dry, no rash
[2024-07-22] MEDS: PRANDIN 2 MG PO (07:51)
[2024-07-22] MEDS: SODIUM BICARBONATE 650 MG PO (07:52)
[2024-07-22] MEDS: MAG-TAB SR 84 MG PO (07:52)
[2024-07-22] MEDS: VITAMIN D3 (cholecalciferol) 25 MCG PO (07:52)
[2024-07-22] MEDS: ELIQUIS 5 MG PO (07:52)
[2024-07-22] MEDS: BETAPACE 120 MG PO (07:52)
[2024-07-22] MEDS: FARXIGA 10 MG PO (07:52)
[2024-07-22] MEDS: THERAGRAN 1 TABLET PO (07:52)
[2024-07-22] MEDS: COLACE 100 MG PO (07:57)
[2024-07-22] MEDS: NOVOLOG FLEXPEN-LOW RESISTANCE 1 UNITS SC (07:57)
--- NOTE | 2024-07-22 09:31 | W.PN.ANS.POP ---
Anesthesia Post Operative
- Anesthesia Post Op Note
Vital Signs Stable-See Nursing Note: Yes
Airway Patent: Yes
Adequate Pain Control: Yes
Change in Mental Status: No
Current Postoperative Nausea & Vomiting: No
Anesthesia Complications: No
General Anesthetic Recall: No
Unplanned Admission: No
Post Op Hydration Adequate: Yes
[2024-07-22] MEDS: KCL 10 MEQ PO (09:55)
[2024-07-22] MEDS: LASIX 20 MG IV (09:55)
--- NOTE | 2024-07-22 10:14 | PN.CDI ---
CDI
- -
CDI:
Physician Documentation Request
Admit Date: 07/21/24 07:[address] Surgery,
Clinical Indicators:
Patient admitted with severe aortic stenosis; s/p TAVR 07/21.
PMH includes CKD.
Cr/GFR trend (pre/post op):
06/01/24 06/14/24 07/13/24
10:09 12:02 12:53
Creatinine 1.3 1.3 1.2
eGFR 53.84 53.84 59.26
07/22/24
03:16
Creatinine 1.1
eGFR > 60.00
Please specify the CKD stage:
CKD 3a
Other, please specify
Stages of Chronic Kidney Disease*
Level Description GFR
G1 Normal or High >90
G2 Mildly decreased 60-89
G3a Mildly to moderately decreased 45-59
G3b Moderately to severely decreased 30-44
G4 Severely decreased 15-29
G5 Kidney failure <15
Use of terms such as suspected, likely, concern for, or probable (associated with a specific diagnosis that is being evaluated, monitored, or treated as if it exists) are acceptable and can be coded in the inpatient setting, when documented at the
time of discharge.
Thank you,
GLENROY Fernandes RN
CDI Specialist
available via tiger text
Please use your independent medical judgment in providing your response.
*Source: Kidney Disease: Improving Global Outcomes (KDIGO) 2012
--- NOTE | 2024-07-22 11:10 | W.PN.UPDATE ---
Update Note
Progress Note Update
CDI query: Patient has PMHx of CKD 3a
--- NOTE | 2024-07-22 11:41 | CM ---
Chart reviewed. Patient is independent of ADLS, lives alone in a split level, 2-3 SILVIA, 0 DME. Patient with a supportive cousin who can help assist. Plan is for the patient to return home with CT Transitional RN. CM to follow
[2024-07-22 11:57] LABS: Glucose - Point of Care 197 mg/dl (70-99)
[2024-07-22] MEDS: NOVOLOG FLEXPEN-LOW RESISTANCE 2 UNITS SC (12:03)
--- NOTE | 2024-07-22 17:05 | PTCARENOTE ---
Pt received this am with no c/o of any pain or sob. Bilateral groin site dressings dry and intact, sites soft and non tender. Pt oob ad vikki, gait steady. CXR and Echo completed. Pt discharged to home with his niece. Discharge instructions given and
reviewed with good understanding and all questions answered.
== END 2024-07-22 17:05 | disposition home or self-care (01) | DRG 266 ==
LOC: IVU 07:17
PROVIDERS: ADMITTING PHYSICIAN Thoracic Surgery (Cardiothoracic Vascular Surgery); FAMILY PHYSICIAN Family Medicine; OTHER PHYSICIAN Internal Medicine Interventional Cardiology
PROC: 02RF38Z Replacement of Aortic Valve with Zooplastic Tissue, Percutaneous Approach (ICD-10-PCS; 2024-07-21)
DX: I35.0 Nonrheumatic aortic (valve) stenosis (principal); Z00.6 Encounter for examination for normal comparison and control in clinical research program; I50.43 Acute on chronic combined systolic (congestive) and diastolic (congestive) heart failure; I48.92 Unspecified atrial flutter; Q21.12 Patent foramen ovale; I13.0 Hypertensive heart and chronic kidney disease with heart failure and stage 1 through stage 4 chronic kidney disease, or unspecified chronic kidney disease; I25.10 Atherosclerotic heart disease of native coronary artery without angina pectoris; N18.31 Chronic kidney disease, stage 3a; E78.00 Pure hypercholesterolemia, unspecified; E11.22 Type 2 diabetes mellitus with diabetic chronic kidney disease; E03.9 Hypothyroidism, unspecified; I49.5 Sick sinus syndrome; E66.812 Obesity, class 2; Z68.37 Body mass index [BMI] 37.0-37.9, adult; Z95.1 Presence of aortocoronary bypass graft; Z95.0 Presence of cardiac pacemaker; Z79.01 Long term (current) use of anticoagulants; Z79.84 Long term (current) use of oral hypoglycemic drugs
CPT/HCPCS: 93308; 33361; 36415; 71045; 71046; 80048; 80053; 81003; 81015; 82248; 82962; 83036; 83880; 85025; 85027; 85610; 85730; 86850; 86900; 86901; 87070; 87147; 93005; 93321; 93325; C1760; C1769; C1894; Q9967